=== PATIENT | male | born 2000 | race Caucasian/White ===

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

== ENCOUNTER 2021-09-26 21:30 | Emergency (ER) | payer MEDICAID ==
[~2021-09-26] VITALS: Ht 177.8 cm; Wt 70.4 kg
[2021-09-26 21:46] VITALS: BP 122/80
--- NOTE | 2021-09-26 22:29 | Diagnostic Imaging Report ---
INDICATION: Right knee pain. FINDINGS: Alignment of the knee is normal. There is no finding of an acute fracture. There is no suspicious bone lesion. There is no significant knee joint effusion evident. There is no focal soft tissue abnormality or foreign body. IMPRESSION: Negative radiographs of the right knee. Dictated by: Dictated on workstation # [id number]
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
== END 2021-09-26 22:48 | disposition home or self-care (01) ==
LOC: EDUNIT# 21:30 → ER 21:33
DX: S89.91XA Unspecified injury of right lower leg, initial encounter (principal); F17.210 Nicotine dependence, cigarettes, uncomplicated; Z28.310 Unvaccinated for COVID-19; X50.1XXA Overexertion from prolonged static or awkward postures, initial encounter
CPT/HCPCS: 73562; 99283; L1830

== ENCOUNTER 2022-03-06 13:18 | Emergency (ER) | payer MEDICAID ==
[~2022-03-06] VITALS: Ht 178 cm; Wt 75.0 kg
--- NOTE | 2022-03-06 13:38 | ED Lower Extremity ---
General Chief Complaint: Lower Extremity Stated Complaint: RT FOOT INJ AT HOME Nursing Triage Note: Girlfriend brought patient to ER via wheelchair w c/o right foot injury. Patient kicked his boxer dog about 9am and the pain in his foot continues to get worse. Source: patient Exam Limitations: no limitations History of Present Illness Date Seen by Provider: Mar 06, 2022 Time Seen by Provider: 13:30 Initial Comments Patient is a 21-year-old male who presents to the emergency department with a chief complaint of right foot injury. Patient was attempting to reprimanded dog, grown boxer, for knocking his niece over. He kicked the dog immediately had right hindfoot pain. Was able to bear weight and actually go to work but the longer he has been up and on his foot the more it hurts. No numbness or tingling in his toes. No injury to the ankle or knee. He did not fall. No other complaints of injury. He is currently on antibiotics for an upper respiratory infection. He took 800 mg of ibuprofen approximately 30 minutes prior to arrival. Onset: this morning Severity: moderate Pain/Injury Location: right foot Method of Injury: direct blow Modifying Factors: Improves With Immobilization Allergies and Home Medications Allergies Coded Allergies: No Known Drug Allergies (Unverified , 12/23/09) Patient Home Medication List Home Medication List Reviewed: Yes Azithromycin (Zithromax Tab) 250 Mg Tab, 1 TAB PO DAILY Prescribed by: FADUMO KENDRICK on 07/29/142255 Guaifenesin/D-Methorphan Hb (Guaifenesin With Dm Syrup) 120 Ml Syrup, 10 ML PO Q4H PRN for COUGH Prescribed by: FADUMO KENDRICK on 07/29/142255 Review of Systems Constitutional: see HPI EENTM: nose congestion Respiratory: cough Cardiovascular: no symptoms reported Gastrointestinal: no symptoms reported Genitourinary: no symptoms reported Musculoskeletal: joint pain Skin: no symptoms reported All Other Systems Reviewed Negative Unless Noted: Yes Past Rxxnrsk-Iozvvp-Ifufbp Hx Patient Social History Tobacco Use?: Yes Tobacco type used: Cigarettes Smoking Status: Current Everyday Smoker Substance use?: Yes Substance type: Marijuana Substance frequency: Daily Alcohol Use?: Yes Alcohol type: Beer Alcohol Frequency: Daily Seasonal Allergies Seasonal Allergies: Yes Past Medical History Surgeries: No Respiratory: No Cardiac: No Neurological: No Genitourinary: No Gastrointestinal: No Musculoskeletal: No Endocrine: No Cancer: No Psychosocial: Yes ADD/ADHD Integumentary: No Blood Disorders: No Adverse Reaction/Blood Tranf: No Family Medical History Heart Disease Physical Exam Vital Signs Vital Signs - First Documented 03/06/22 03/06/22 13:24 14:01 Temp 36.2 Pulse 93 Resp 18 B/P (MAP) 129/78 (95) Pulse Ox 99 O2 Delivery Room Air Capillary Refill : Less Than 3 Seconds Height, Weight, BMI Height: 5'9.00" Weight: 180lbs. oz. [id number]; 23.00 BMI Method:Stated General Appearance: WD/WN, no apparent distress Cardiovascular: regular rate, rhythm Respiratory: lungs clear, normal breath sounds, no respiratory distress, no accessory muscle use Legs: bilateral leg non-tender Knees: bilateral knee non-tender, bilateral knee normal range of motion Ankles: right ankle non-tender, right ankle normal inspection, right ankle normal range of motion Feet: right foot limited range of motion, right foot pain (Dorsum of the foot), right foot soft tissue tenderness (Over the dorsum of the foot lateral aspect proximal third fourth and fifth meta tarsal) Neurologic/Tendon: normal motor functions, normal tendon functions Neurologic/Psychiatric: alert, normal mood/affect, oriented x 3 Skin: normal color, warm/dry Procedures/Interventions Suture Size: 4-0 Progress/Results/Core Measures Results/Orders My Orders Orders - FAISAL ESTES MD Foot, Right, 3 View (03/06/22 13:34) Vital Signs/I&O 03/06/22 03/06/22 13:24 14:01 Temp 36.2 Pulse 93 86 Resp 18 B/P (MAP) 129/78 (95) 129/79 Pulse Ox 99 99 O2 Delivery Room Air Room Air Blood Pressure Mean: 95 Progress Progress Note : Time: 13:57 Progress Note Patient seen and evaluated, 21-year-old male with foot injury. Physical exam pertinent for tenderness over the dorsum of the lateral foot. No significant swelling, neurovascularly intact. 3 views of the right foot obtained which were read by the radiologist as negative for acute fracture or malalignment. Patient is instructed to ice, elevate and use NSAIDs. He verbalized understanding. Questions are sought and answered. Patient stable for discharge. Diagnostic Imaging Diagonstic Imaging: Xray Comments [facility], [place], [place] NAME: ERIC BUCHANAN [facility] REC#: [id number] PT STATUS: REG ER : 2000 PHYSICIAN: FAISAL ESTES MD ADMIT DATE: 03/06/22/ER Signed Date of Exam:03/06/22 FOOT, RIGHT, 3 VIEW FOOT, RIGHT, 3 VIEW INDICATION: Right foot pain COMPARISON: None available. TECHNIQUE: 3 views of right foot FINDINGS: No acute fracture. No features of metatarsal stress fracture. 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 No osseous tarsal coalition. IMPRESSION: No fracture or malalignment. Dictated by: Dictated on workstation # [id number] Dict: 03/06/22 1351 Trans: 03/06/22 1352 [facility] [id number] Interpreted by: BONITA CR MD Electronically signed by: BONITA CR MD 03/06/22 1352 Departure Impression Primary Impression: Sprain or strain of foot Disposition: HOME, SELF-CARE Departure-Patient Inst. Decision time for Depature: 13:56 Referrals: [facility],LOCAL PHYSICIAN (PCP) Primary Care Physician Patient Instructions: Foot Sprain ED Add. Discharge Instructions: Use ice to the top of the foot 20 minutes at a time 3-4 times a day for the next 24 to 48 hours. You can take [id number] ibuprofen 3 to 4 tablets which is 600 to 800 mg every 8 hours with food as needed for pain Keep it elevated to reduce any swelling. Return to the emergency department for any new, concerning or emergent complaints. Work/School Note: Work Release Form Date Seen in the Emergency Department: Mar 06, 2022 Return to Work: Mar 08, 2022 FAISAL ESTES MD Mar 06, 2022 13:38
--- NOTE | 2022-03-06 13:53 | Diagnostic Imaging Report ---
FOOT, RIGHT, 3 VIEW INDICATION: Right foot pain COMPARISON: None available. TECHNIQUE: 3 views of right foot FINDINGS: No acute fracture. No features of metatarsal stress fracture. 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 No osseous tarsal coalition. IMPRESSION: No fracture or malalignment. Dictated by: Dictated on workstation # [id number]
[2022-03-06 14:01] VITALS: BP 129/79
== END 2022-03-06 14:07 | disposition home or self-care (01) ==
LOC: EDUNIT# 13:18 → ER 13:21
DX: S93.601A Unspecified sprain of right foot, initial encounter (principal); F17.210 Nicotine dependence, cigarettes, uncomplicated; Z28.310 Unvaccinated for COVID-19; W54.1XXA Struck by dog, initial encounter; Y92.009 Unspecified place in unspecified non-institutional (private) residence as the place of occurrence of the external cause
CPT/HCPCS: 73630